=== PATIENT | male | born 1960 | race African-American/Black ===

== ENCOUNTER 2020-10-25 09:59 | Emergency (ER) | payer OTHER ==
[~2020-10-25] VITALS: Ht 175.3 cm; Wt 90.7 kg
[2020-10-25] MEDS ORDERED: Omnipaque-300 100ml vial INJ PRN (10:15)
--- NOTE | 2020-10-25 10:16 | Emergency Room Report ---
History of Present Illness General Chief Complaint: Abdominal Pain Source: Patient Present Illness HPI Patient is a 60-year-old male presents for increased left-sided abdominal pain. Onset of symptoms last night. Reports having had decreased bowel movements. Previous history of diverticulitis in the past. Had not been having any fever. Denies recent vomiting. No recent problem with urination. Pain is severe in nature. Patient had taken Pepto-Bismol without any improvement. No diarrhea or bloody stools. Allergies: Coded Allergies: No Known Allergies (Unverified , 10/25/20) COVID-19 Screening Contact w/high risk pt: No Experienced COVID-19 symptoms?: No COVID-19 Testing performed BRICK PAVER: No Patient History Past Medical History: see triage record Reviewed Nursing Documentation: PMH: Agreed; PSxH: Agreed Nursing Documentation-PMH Past Medical History: No History, Except For Hx Hypertension: Yes Review of Systems All Other Systems: limited Physical Exam Vital Signs Date Time Temp Pulse Resp B/P (MAP) Pulse Ox O2 Delivery O2 Flow Rate FiO2 10/25/20 10:00 98.1 111 17 139/77 (97) 98 Room Air Sp02 EP Interpretation: reviewed, normal General Appearance: normal inspection, well appearing, no apparent distress, alert, GCS 15 Head: atraumatic ENT: normal ENT inspection, hearing grossly normal, normal voice Neck: normal inspection, full range of motion, supple, no bony tend Respiratory: normal inspection, lungs clear, normal breath sounds, no respiratory distress, no retraction, no wheezing Cardiovascular #1: regular rate, rhythm, no edema Gastrointestinal: normal inspection, normal bowel sounds, non tender, soft, no guarding, no hernia Genitourinary: no CVA tenderness Musculoskeletal: normal inspection, back normal, normal range of motion Neurologic: alert, motor strength/tone normal, gastroenterology professor III-XII nml as tested, oriented x3, responsive, speech normal, normal inspection Psychiatric: normal inspection, judgement/insight normal, mood/affect normal Medical Decision Making Diagnostic Impression: Primary Impression: Diverticulitis ER Course Patient presents for abdominal pain. Differential diagnosis include was not limited to diverticulitis, kidney stone, peptic ulcer disease, among others. Because of complexity of patient's case laboratory tests and imaging studies were ordered.Patient's laboratory testing showed minimally elevated white blood count. CT imaging showed evidence of acute diverticulitis. Patient has had diverticulitis in the past. Patient was offered admission which he declined. Patient appears stable for outpatient trial of antibiotics. He was given prescription for pain medications. He was given return precautions. He was advised to return if he felt worse or had persistent vomiting increased pain or other concerns. This medical record is generated with [employer] reserves clerk software. There may be some reserves clerk discrepancies related to use of this software Labs Test 10/25/20 10:18 White Blood Count 13.2 K/UL (4.8-10.8) Red Blood Count 4.56 M/UL (4.70-6.10) Hemoglobin 12.3 G/DL (14.2-18.0) Hematocrit 39.0 % (42.0-52.0) Mean Corpuscular Volume 85 FL (80-99) Mean Corpuscular Hemoglobin 27.0 PG (27.0-31.0) Mean Corpuscular Hemoglobin Concent 31.7 G/DL (32.0-36.0) Red Cell Distribution Width 13.7 % (11.6-14.8) Platelet Count 431 K/UL (150-450) Mean Platelet Volume 8.6 FL (6.5-10.1) Neutrophils (%) (Auto) 72.4 % (45.0-75.0) Lymphocytes (%) (Auto) 16.0 % (20.0-45.0) Monocytes (%) (Auto) 9.5 % (1.0-10.0) Eosinophils (%) (Auto) 0.7 % (0.0-3.0) Basophils (%) (Auto) 1.4 % (0.0-2.0) Prothrombin Time 11.3 SEC (9.30-11.50) Prothromb Time International Ratio 1.0 (0.9-1.1) Activated Partial Thromboplast Time 28 SEC (23-33) Sodium Level 139 MMOL/L (136-145) Potassium Level 3.7 MMOL/L (3.5-5.1) Chloride Level 104 MMOL/L (98-107) Carbon Dioxide Level 28 MMOL/L (21-32) Blood Urea Nitrogen 10 mg/dL (7-18) Creatinine 1.4 MG/DL (0.55-1.30) Estimat Glomerular Filtration Rate 52.1 mL/min (>60) Glucose Level 103 MG/DL (74-106) Calcium Level 9.8 MG/DL (8.5-10.1) Total Bilirubin 0.4 MG/DL (0.2-1.0) Aspartate Amino Transf (AST/SGOT) 24 U/L (15-37) Alanine Aminotransferase (ALT/SGPT) 36 U/L (12-78) Alkaline Phosphatase 68 U/L (46-116) Troponin I 0.000 ng/mL (0.000-0.056) Total Protein 8.3 G/DL (6.4-8.2) Albumin 3.2 G/DL (3.4-5.0) Globulin 5.1 g/dL Albumin/Globulin Ratio 0.6 (1.0-2.7) Last Vital Signs Date Time Temp Pulse Resp B/P (MAP) Pulse Ox O2 Delivery O2 Flow Rate FiO2 10/25/20 10:00 98.1 111 17 139/77 (97) 98 Room Air Status: improved Disposition: HOME, SELF-CARE Condition: Stable Scripts Oxycodone/Acetaminophen 5-325* (PERCOCET 5-325 MG TABLET*) 1 Each Tablet 1 TAB ORAL Q6H PRN for For Pain, #20 TAB Prov: Cameron Haro MD 10/25/20 Psyllium Husk (PSYLLIUM FIBER) 0.52 Gm Capsule 0.52 GM PO THREE TIMES A DAY, #60 CAP Prov: Cameron Haro MD 10/25/20 Metronidazole* (FLAGYL*) 500 Mg Tablet 500 MG ORAL BID, #14 TAB Prov: Cameron Haro MD 10/25/20 Docusate Sodium* (COLACE*) 100 Mg Capsule 100 MG ORAL TWICE A DAY, #30 CAP Prov: Cameron Haro MD 10/25/20 Cameron Haro MD Oct 25, 2020 10:16
[2020-10-25] MEDS ORDERED: Ketorolac 30mg Inj IV ONE (10:30)
[2020-10-25 10:36] LABS: BASOPHILS % (AUTO) 1.4 % (0.0-2.0); EOSINOPHILS % (AUTO) 0.7 % (0.0-3.0); HEMOGLOBIN 12.3 G/DL (14.2-18.0); MEAN CORPUSCULAR VOLUME 85 FL (80-99); MONOCYTES % (AUTO) 9.5 % (1.0-10.0); NEUTROPHILS % (AUTO) 72.4 % (45.0-75.0); PLATELET COUNT 431 K/UL (150-450); RED BLOOD COUNT 4.56 M/UL (4.70-6.10); RED CELL DISTRIBUTION WIDTH 13.7 % (11.6-14.8); WHITE BLOOD COUNT 13.2 K/UL (4.8-10.8)
[2020-10-25 10:45] LABS: ALANINE AMINOTRANSFERASE 36 U/L (12-78); ALBUMIN 3.2 G/DL (3.4-5.0); ALBUMIN/GLOBULIN RATIO 0.6 (1.0-2.7); ALKALINE PHOSPHATASE 68 U/L (46-116); ASPARTATE AMINO TRANSFERASE 24 U/L (15-37); BILIRUBIN,TOTAL 0.4 MG/DL (0.2-1.0); BLOOD UREA NITROGEN 10 mg/dL (7-18); CALCIUM 9.8 MG/DL (8.5-10.1); CARBON DIOXIDE 28 MMOL/L (21-32); CREATININE 1.4 MG/DL (0.55-1.30)
[2020-10-25 10:50] LABS: CHLORIDE 104 MMOL/L (98-107); POTASSIUM 3.7 MMOL/L (3.5-5.1); SODIUM 139 MMOL/L (136-145)
[2020-10-25] MEDS ORDERED: Ampicillin/Sulbactam Sod 3 GM in NS 110 ML IVPB ONE (11:45)
[2020-10-25] MEDS ORDERED: Morphine Sulfate 4mg/ml Inj (IV USE ONLY) IVP ONE (11:45)
--- NOTE | 2020-10-25 12:31 | Diagnostic Imaging Report ---
Clinical Indication: Increased left-sided abdominal pain Technique: No oral contrast utilized, per emergency room physician request IV administration nonionic contrast. Venous phase spiral acquisition obtained through the abdomen and pelvis. Multiplanar reconstructions were generated. Total dose length product 417 mGycm. CTDIvol(s) 8 mGy. Dose reduction achieved using automated exposure control Comparison: none Findings: Lack of enteric contrast limits assessment of the GI tract. There are colonic diverticula. There is infiltration of the fat surrounding the distal descending colon, and a small amount of fluid tracking along Gerota's fascia. No extraluminal gas. No loculated fluid collection demonstrated. The appendix is normal. No small bowel distention. No free intraperitoneal gas. The distal esophagus, stomach, duodenum are unremarkable. The liver, gallbladder, bile ducts, pancreas, spleen are unremarkable. There is an accessory splenule. The adrenals are unremarkable. The right kidney is unremarkable. Left kidney demonstrates subcentimeter low attenuation lesions which are too small to characterize no pelvic mass or adenopathy. No retroperitoneal or mesenteric mass or adenopathy. The included lung bases are clear. The bones are unremarkable. Impression: Evidence of descending colon diverticulitis. Incidental finding of subcentimeter low-attenuation renal lesions on the left, too small to characterize, most likely benign simple cysts The CT scanner at [facility] is accredited by the [employer] and the scans are performed using protocols designed to limit radiation exposure to as low as reasonably achievable to attain images of sufficient resolution adequate for diagnostic evaluation.
[2020-10-25] MEDS ORDERED: PERCOCET 5-3251 EACH ORAL ×2 (12:54→12:55)
[2020-10-25] MEDS ORDERED: COLACE100 MG ORAL (12:54)
[2020-10-25] MEDS ORDERED: PSYLLIUM FIBE0.52 G1 PO (12:54)
[2020-10-25] MEDS ORDERED: METRONIDAZOLE500 MG ORAL (12:54)
[2020-10-25 13:00] VITALS: BP 139/77
[2020-10-25 13:18] VITALS: BP 127/74
--- NOTE | 2020-10-25 13:18 | NUR ---
ER DISCHARGE NOTE: Patient is cleared to be discharged per ERMD, pt is aox4, on room air, with stable vital signs. pt was given dc and prescription instructions, pt was able to verbalize understanding, pt id band and iv site removed without complications. pt is able to ambulate with steady gait. pt took all belongings.
== END 2020-10-25 13:31 | disposition home or self-care (01) ==
LOC: EMR 12:34
DX: K57.92 Diverticulitis of intestine, part unspecified, without perforation or abscess without bleeding (principal); I10 Essential (primary) hypertension
CPT/HCPCS: 36415; 74177; 80053; 84484; 85025; 85610; 85730; 96365; 96375; J0295; J1885; J2270; Q9965; Z7502; 99284

== ENCOUNTER 2020-10-27 13:15 | Inpatient (IN) | payer OTHER ==
[~2020-10-27] VITALS: Ht 175.3 cm; Wt 87.5 kg
[~2020-10-27 13:15] MED LIST: COLACE100 MG ORAL; METRONIDAZOLE500 MG ORAL; PERCOCET 5-3251 EACH ORAL; PSYLLIUM FIBE0.52 G1 PO
--- NOTE | 2020-10-27 13:42 | NUR ---
ED Nurse Note:pt. c/o abdominal pain, was here on 10/25 with diverticulitis, pain got worst
[2020-10-27] MEDS ORDERED: Metoclopramide 10mg/2ml Inj IVP ONE (14:15)
[2020-10-27] MEDS ORDERED: cefTRIAXone 1 GM in NS 55 ML IVPB ONE (14:15)
[2020-10-27] MEDS ORDERED: HYDROmorphone 1mg/ml Carpuject IVP ONE (14:15)
[2020-10-27] MEDS ORDERED: DiphenhydrAMINE 50mg/ml Inj IVP ONE (14:15)
--- NOTE | 2020-10-27 14:36 | Emergency Room Report ---
History of Present Illness General Chief Complaint: Abdominal Pain Source: Patient Present Illness HPI The patient was seen here 2 days ago. He was diagnosed with diverticulitis. He was given a dose of Unasyn in the emergency department and discharged on Flagyl and Percocet. He says usually this controls the pain however he returns today stating that the pain is still severe. This morning it was 9/10 before he took a Percocet. Now it is 8/10. It is left lower quadrant nonradiating. He did move his bowels earlier today. He denies any nausea vomiting. He does not have any dysuria or hematuria. The patient has had a history of diverticulitis in the past. He has never required surgery. Patient denies exposure to Covid positive contacts. He was positive September 22. He did not need to be hospitalized. Patient has history of hypertension and has been able to take his medications. No fevers, chills, sore throat, chest pain, palpitations, shortness of breath, joint pain, rashes, depression, anxiety, visual changes, dizziness, headache. 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 Brought here by his girlfriend Reviewed Nursing Documentation: PMH: Agreed; PSxH: Agreed Nursing Documentation-PMH Past Medical History: No History, Except For Hx Hypertension: Yes Review of Systems All Other Systems: negative except mentioned in HPI Physical Exam Vital Signs Date Time Temp Pulse Resp B/P (MAP) Pulse Ox O2 Delivery O2 Flow Rate FiO2 10/27/20 13:25 98.1 115 20 103/71 (82) 96 Room Air Sp02 EP Interpretation: reviewed, normal General Appearance: well appearing, no apparent distress, GCS 15 Head: normocephalic Eyes: bilateral eye normal inspection, bilateral eye PERRL, bilateral eye EOMI, bilateral eye other - Heliotrope rash around eyes ENT: other - Wearing a mask Neck: supple Respiratory: lungs clear, normal breath sounds - Anteriorly Cardiovascular #1: regular rate, rhythm Cardiovascular #2: 2+ radial (R) Gastrointestinal: normal inspection, normal bowel sounds, no mass, non-disten ded, no guarding, no rebound, tenderness - Left lower quadrant Musculoskeletal: back normal, normal range of motion, gait/station normal Neurologic: alert, oriented x3, grossly normal Psychiatric: mood/affect normal Skin: no rash, warm/dry Medical Decision Making Diagnostic Impression: Primary Impression: Diverticulitis Additional Impression: Renal failure Qualified Codes: N17.9 - Acute kidney failure, unspecified ER Course Patient was seen October 25 with a diagnosis of diverticulitis and returns for increased pain at this time. He has been taking the antibiotics and also the Percocet. Differential includes persistent pain from diverticulitis, worsening of diverticulitis although the exam is against perforation at this time amongst other causes. At this time CT is not indicated to be repeated based on exam. In addition to that labs are indicated. Patient will receive IV hydration and also a dose of Rocephin IV. We will see if we can control his pain here. If we are unable to control the pain with repeated abdominal exams he may need to be admitted to the hospital. Labs significant for normal white count. Dramatic increase in serum creatinine over the last 2 days. Patient's pain is improved. However due to rising creatinine patient is admitted to the hospital for acute renal failure and following of renal function. Based on fractional excretion of sodium, renal failure is pre-renal. Hydration indicated. Laboratory Tests Test 10/27/20 14:37 10/27/20 15:32 White Blood Count 9.0 K/UL (4.8-10.8) Red Blood Count 4.27 M/UL (4.70-6.10) L Hemoglobin 12.0 G/DL (14.2-18.0) L Hematocrit 36.5 % (42.0-52.0) L Mean Corpuscular Volume 85 FL (80-99) Mean Corpuscular Hemoglobin 28.0 PG (27.0-31.0) Mean Corpuscular Hemoglobin Concent 32.8 G/DL (32.0-36.0) Red Cell Distribution Width 13.4 % (11.6-14.8) Platelet Count 446 K/UL (150-450) Mean Platelet Volume 8.4 FL (6.5-10.1) Neutrophils (%) (Auto) 60.2 % (45.0-75.0) Lymphocytes (%) (Auto) 24.1 % (20.0-45.0) Monocytes (%) (Auto) 10.7 % (1.0-10.0) H Eosinophils (%) (Auto) 3.2 % (0.0-3.0) H Basophils (%) (Auto) 1.7 % (0.0-2.0) Prothrombin Time 11.0 SEC (9.30-11.50) Prothrombin Time INR 1.0 (0.9-1.1) Activated Partial Thromboplast Time 29 SEC (23-33) Sodium Level 140 MMOL/L (136-145) Potassium Level 3.6 MMOL/L (3.5-5.1) Chloride Level 103 MMOL/L (98-107) Carbon Dioxide Level 30 MMOL/L (21-32) Anion Gap 7 mmol/L (5-15) Blood Urea Nitrogen 17 mg/dL (7-18) Creatinine 1.7 MG/DL (0.55-1.30) H Estimated Glomerular Filtration Rate 50.4 mL/min (>60) Glucose Level 103 MG/DL (74-106) Calcium Level 9.5 MG/DL (8.5-10.1) Total Bilirubin 0.3 MG/DL (0.2-1.0) Aspartate Amino Transferase (AST) 21 U/L (15-37) Alanine Aminotransferase (ALT) 34 U/L (12-78) Alkaline Phosphatase 76 U/L (46-116) Total Protein 8.4 G/DL (6.4-8.2) H Albumin 2.9 G/DL (3.4-5.0) L Globulin 5.5 g/dL Albumin/Globulin Ratio 0.5 (1.0-2.7) L Lipase 355 U/L (73-393) Urine Color Yellow Urine Appearance Clear Urine pH 6 (4.5-8.0) Urine Specific [place] 1.010 (1.005-1.035) Urine Protein 1+ (NEGATIVE) H Urine Glucose (UA) Negative (NEGATIVE) Urine Ketones Negative (NEGATIVE) Urine Blood 1+ (NEGATIVE) H Urine Nitrite Negative (NEGATIVE) Urine Bilirubin Negative (NEGATIVE) Urine Urobilinogen Normal MG/DL (0.0-1.0) Urine Leukocyte Esterase 1+ (NEGATIVE) H Urine RBC 0-2 /HPF (0 - 0) H Urine WBC 2-4 /HPF (0 - 0) Urine Squamous Epithelial Cells None /LPF (NONE/OCC) Urine Bacteria Few /HPF (NONE) Last Vital Signs Date Time Temp Pulse Resp B/P (MAP) Pulse Ox O2 Delivery O2 Flow Rate FiO2 10/28/20 00:00 97.7 79 19 126/72 (90) 100 10/27/20 20:34 Room Air Status: improved Disposition: ADMITTED INPATIENT Condition: Serious Referrals: [facility],REFERRING (PCP) Hudson Fine MD Oct 27, 2020 14:36
[2020-10-27 15:30] LABS: CALCIUM 9.5 MG/DL (8.5-10.1); CREATININE 1.7 MG/DL (0.55-1.30); POTASSIUM 3.6 MMOL/L (3.5-5.1)
[2020-10-27 15:34] LABS: ALBUMIN 2.9 G/DL (3.4-5.0); ALBUMIN/GLOBULIN RATIO 0.5 (1.0-2.7); BILIRUBIN,TOTAL 0.3 MG/DL (0.2-1.0)
[2020-10-27 15:49] LABS: BASOPHILS % (AUTO) 1.7 % (0.0-2.0); EOSINOPHILS % (AUTO) 3.2 % (0.0-3.0); HEMATOCRIT 36.5 % (42.0-52.0); LYMPHOCYTES % (AUTO) 24.1 % (20.0-45.0); MEAN CORPUSCULAR VOLUME 85 FL (80-99); MONOCYTES % (AUTO) 10.7 % (1.0-10.0); NEUTROPHILS % (AUTO) 60.2 % (45.0-75.0); PLATELET COUNT 446 K/UL (150-450); RED BLOOD COUNT 4.27 M/UL (4.70-6.10); RED CELL DISTRIBUTION WIDTH 13.4 % (11.6-14.8)
--- NOTE | 2020-10-27 15:54 | NUR ---
ED Nurse Note: pt given food, fluids. pt urinated, sent to lab. pt verbalizes understanding of plan to admit for renal observation. pt A&Ox4, ambulatory, stable. will continue to monitor.
[2020-10-27 16:05] LABS: APPEARANCE,URINE CLEAR; BILIRUBIN, URINE NEGATIVE (NEGATIVE); GLUCOSE, URINE (UA) NEGATIVE (NEGATIVE); KETONES,URINE NEGATIVE (NEGATIVE); NITRITE,URINE NEGATIVE (NEGATIVE); PH,URINE 6 (4.5-8.0); PROTEIN,URINE 1+ (NEGATIVE); UROBILINOGEN,URINE NORMAL MG/DL (0.0-1.0)
[2020-10-27 16:31] LABS: COLOR,URINE YELLOW; LEUKOCYTE ESTERASE ,URINE 1+ (NEGATIVE)
[2020-10-27 18:24] VITALS: BP 122/78
--- NOTE | 2020-10-27 18:25 | NUR ---
ED Nurse Note: pt given food fluids. pt updated regarding plan for admission. pt belonging list documented.
--- NOTE | 2020-10-27 18:40 | NUR ---
NURSE NOTES: Telephone report received from John MOSHER, awaiting for patient to be transferred to 4E unit.
--- NOTE | 2020-10-27 18:42 | NUR ---
ED Nurse Note: called report to Faviola MOSHER.
--- NOTE | 2020-10-27 19:07 | NUR ---
NURSE HAND-OFF: Important Events on Shift:ER admission, has not been transferred to yet Patient Status: [] Diet: [] Pending Orders: [] Pending Results/Labs:[] Pending MD notification:[] Latest Vital Signs: Temperature 98.1 , Pulse 72 , B/P 122 /78 , Respiratory Rate 18 , O2 SAT 95 , Room Air, O2 Flow Rate . Vital Sign Comment: [] Latest Sánchez Fall Score: Fall Risk: Safety Measures: Call light , Bed Alarm , Side Rails , Bed position . Fall Precautions: Report given to Yoseph MOSHER.
--- NOTE | 2020-10-27 19:18 | NUR ---
ED Nurse Note: Pt laying in bed with eyes open, AAOx4, breathing even and unlabored. No complaints from pt at the moment, denies pain.
--- NOTE | 2020-10-27 19:40 | NUR ---
TRANSFER TO FLOOR: Patient transferred to [facility] as ordered, per EDMD. Report given to by dayshift nurse to NOMI Merchant. Belongings and admission packet given to NOMI Zaldivar in [facility].
[2020-10-27 20:00] VITALS: BP 123/80
--- NOTE | 2020-10-27 20:15 | NUR ---
NURSE NOTES: Pt admitted from ER with DX of Abdominal pain under Dr. Robert, Hx of diverticulitis. Vitals stable on room air. No acute distress noted. Pt is afebrile, no coughing. Pt is awake ,alert and ambulatory. No pain now as pain medication was given in ER. No nausea or vomiting now. Dr. Robert will be called for admission orders. Pt oriented to the room. Pt's belongings verified; pt refused to send valuables for safe keeping, signed the belonging sheet. Fall precautions in place. Bed locked low in position,side rails up and call light within reach. Pt will be monitored.
[2020-10-27] MEDS ORDERED: AMLODIPINE BESY10 MG ORAL (20:33)
--- NOTE | 2020-10-27 21:01 | History & Physical ---
History and Physical History & Physicial Eiljah Robert MD Oct 27, 2020 21:01
[2020-10-27] MEDS ORDERED: Morphine Sulfate 2mg/ml Inj(IV/IM USE ONLY) IVP PRN (21:15)
[2020-10-27] MEDS ORDERED: Omnipaque-300 100ml vial INJ PRN (21:15)
[2020-10-27] MEDS ORDERED: HYDROcodone/Acetamin 5/325 tab ORAL PRN (21:15)
--- NOTE | 2020-10-27 21:15 | NUR ---
NURSE NOTES: Admission orders received from dr. Robert and acknowledged.
[2020-10-27] MEDS: Piperacillin/Tazobactam 3.375 GM in NS 110 ML IVPB SCH (22:47)
[2020-10-27] MEDS: D5 1/2NS w/KCl 20mEq 1,000 ML IV SCH (22:48)
[2020-10-28] VITALS: BP 126/72
--- NOTE | 2020-10-28 03:08 | NUR ---
NURSE NOTES: Pt is in bed, asleep. No acute distress noted. D5 1/2NS with 20mEq KCL running at 75ml/hr. Pt reports no pain now.
[2020-10-28 04:00] VITALS: BP 138/72
--- NOTE | 2020-10-28 06:00 | NUR ---
NURSE NOTES: Pt has been NPO since midnight.
[2020-10-28] MEDS: Piperacillin/Tazobactam 3.375 GM in NS 110 ML IVPB SCH ×3 (06:20→21:46)
--- NOTE | 2020-10-28 07:30 | NUR ---
NURSE HAND-OFF: Important Events on Shift:[Admission] Patient Status: [Stable] Diet: [Clear Liq- NPO now] Pending Orders: [] Pending Results/Labs:[ABD CT Scan] Pending MD notification:[] Latest Vital Signs: Temperature 97.9 , Pulse 60 , B/P 138 /72 , Respiratory Rate 18 , O2 SAT 98 , Room Air, O2 Flow Rate . Vital Sign Comment: [] Latest Sánchez Fall Score: 35 Fall Risk: Medium Risk Safety Measures: Call light Within Reach, Bed Alarm Zone 2, Side Rails Side Rails x2, Bed position Low and Locked. Fall Precautions: Yellow Socks Yellow Gown Door Sign Patient Fall Education Report given to [NOMI Ayala. Informed to keep Pt NPO for ABD CT Scan].
--- NOTE | 2020-10-28 07:42 | NUR ---
NURSE NOTES: Handoff received from Yoseph RN. Patient is awake and alert, no signs of acute distress noted, no reports of pain or discomfort at this time. Left Ac is intact and running IVf as ordered. Updated patient on plan of care, patient is currently NPO for ABD CT this AM. Bed is low and locked, side rails up x2, call light is within reach.
[2020-10-28 07:57] LABS: BASOPHILS % (AUTO) 1.6 % (0.0-2.0); HEMATOCRIT 33.1 % (42.0-52.0); HEMOGLOBIN 10.8 G/DL (14.2-18.0); LYMPHOCYTES % (AUTO) 36.2 % (20.0-45.0); MEAN CORPUSCULAR VOLUME 85 FL (80-99); MONOCYTES % (AUTO) 15.2 % (1.0-10.0); PLATELET COUNT 429 K/UL (150-450); RED BLOOD COUNT 3.88 M/UL (4.70-6.10); RED CELL DISTRIBUTION WIDTH 13.3 % (11.6-14.8); WHITE BLOOD COUNT 5.8 K/UL (4.8-10.8)
[2020-10-28 08:00] VITALS: BP 130/79
[2020-10-28 08:19] LABS: ALBUMIN 2.6 G/DL (3.4-5.0); ALBUMIN/GLOBULIN RATIO 0.5 (1.0-2.7); BILIRUBIN,TOTAL 0.3 MG/DL (0.2-1.0); CALCIUM 8.9 MG/DL (8.5-10.1); CREATININE 1.5 MG/DL (0.55-1.30); PHOSPHORUS 2.8 MG/DL (2.5-4.9); POTASSIUM 3.8 MMOL/L (3.5-5.1)
--- NOTE | 2020-10-28 10:14 | History and Physical Report ---
DATE OF ADMISSION: 10/27/2020 CHIEF COMPLAINT: Left lower quadrant abdominal pain. HISTORY OF PRESENT ILLNESS: This is a 60-year-old very delightful gentleman with past medical history significant for hypertension and chronic kidney disease, who presented to the hospital complaining about the left lower quadrant abdominal pain. The patient had recently presented to the emergency department complaining of abdominal pain and was diagnosed with diverticulitis and subsequently the patient received Unasyn and discharged with Flagyl and Percocet. The patient stated that usually this controlled the pain, however, he returned back to the hospital due to the severe worsening of the pain starting today in the morning, 9/10 in intensity, not responding to the Percocet pain medication. Pain is in the left lower , nonradiating, did improve when the patient had a bowel movement today. No nausea or vomiting. No dysuria, frequency, or hematuria. Shortly after initial evaluation in the emergency department, the patient was admitted to the hospital with left lower quadrant pain possible due to the acute diverticulitis. PAST MEDICAL HISTORY AND PAST SURGICAL HISTORY: As above, history of hypertension and chronic kidney disease. 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 MEDICATIONS: At home, please refer to medication reconciliation. ALLERGIES: No known drug allergies. SOCIAL HISTORY: Denies any smoking, alcohol, or drugs, but he is socially drinking otherwise. FAMILY HISTORY: Noncontributory. REVIEW OF SYSTEMS: Mostly as above. Denies any dysuria, frequency, or hematuria. Denies any hemoptysis or hematochezia. Denies any bright red blood per rectum. Denies any loss of consciousness. Denies any fall or head trauma. PHYSICAL EXAMINATION: VITAL SIGNS: On admission, temperature 98.1, pulse of 115, respirations 20, and blood pressure 103/71. GENERAL: The patient is awake and responsive, not in acute distress. HEAD AND NECK: Pupils are equal and reactive to light. Extraocular movements are intact. Neck was supple. No JVD. LUNGS: Good air entry with no wheezing or rales. HEART: S1, S2. Regular rhythm. No gallop. ABDOMEN: Soft, nondistended. Mildly obese. No rebound tenderness. The patient has left lower quadrant tenderness on deep palpation. RECTAL/GENITOURINARY: Refused and deferred. EXTREMITIES: No cyanosis, clubbing, or edema. NEUROLOGIC: Cranial nerves II through XII grossly normal. Motor strength is 5/5 in all extremities. Gait is intact. LABORATORY DATA: On admission from the emergency department, sodium 140, potassium 3.6, chloride 103, bicarb 30, BUN , creatinine 1.7. Glucose is 103. AST of 21, ALT of 34, alkaline phosphatase 76. Albumin is 2.9. Lipase is 355. WBC of 9.0, hemoglobin 12, hematocrit 36, platelets 446,000. UA is +1 protein, +1 blood, +1 leukocytes. PT of 11, INR of 1.0, PTT of 29. ASSESSMENT: 1. Left lower quadrant pain, most likely due to diverticulitis, however, cannot rule out any other etiology, possible intra-abdominal infection such as abscess. 2. Hypertension. 3. Acute kidney injury and chronic renal insufficiency. 4. Obesity. PLAN: Admit the patient to medical floor. We will start the patient on broad spectrum antibiotic with Zosyn. Clear liquid diet. Consider repeat CT scan of the abdomen and pelvis in order to rule out abscess. Code status is Full Code. DVT prophylaxis, heparin subcutaneous. We will follow up with Dr. Sewell from Gastroenterology and Dr. Wylie from General Surgery consultation. Elijah Robert M.D. DR: STEVE JOB#: [id number] CC:
--- NOTE | 2020-10-28 10:27 | NUR ---
CASE MANAGEMENT:REVIEW 60 YR OLD MALE PRESENTED TO ER CC; ABDOMINAL PAIN SI: ACUTE RENAL FAILURE. DIVERTICULITIS 98.1 115 20 103/71 96% ON RA CR+1.7 URINE CR+226.5 IS: IV REGLAN IV DILAUDID 1L NS BOLUS IV BENADRYL X1 IV ROCEPHIN X1 : TO MED/SURG 4 EAST DCP: RETURN TO PRIOR LIVING ARRANGEMENTS
--- NOTE | 2020-10-28 10:30 | Diagnostic Imaging Report ---
Indication: Abdominal pain Technique: Spiral acquisitions obtained through the abdomen and pelvis. Patient ingested oral contrast. No IV contrast, reason not stated. Multiplanar reconstructions were generated. Total dose length product 398 mGycm. CTDIvol(s) 7 mGy. Dose reduction achieved using automated exposure control Comparison: 10/25/2020 Findings: There is colonic diverticulosis. Again demonstrated is inflammatory stranding of the pericolonic fat surrounding the distal descending colon. This appears slightly decreased from the prior exam, and the amount of fluid tracking in the adjacent fascial planes is also decreased. No organized fluid collection or extraluminal gas is demonstrated. The appendix is normal. No small bowel distention. Ingested contrast has traversed the entirety of the GI tract, is seen as far distally as the splenic flexure the colon. No small bowel wall thickening. No free or loculated intraperitoneal gas. The distal esophagus, stomach, duodenum are unremarkable. Lack of IV contrast limits assessment of the solid organs. The liver, gallbladder, bile ducts, pancreas, spleen, adrenals, kidneys are unremarkable. No retroperitoneal or mesenteric mass or adenopathy. No pelvic mass or adenopathy. The included lung bases demonstrate posterior dependent atelectatic changes. The bones are unremarkable for age. Impression: Evidence of uncomplicated acute diverticulitis of the distal descending colon is again demonstrated. Overall inflammatory changes and fluid have improved slightly since the previous exam of 3 days earlier. No evidence of microperforation or abscess formation Incidental finding basilar dependent atelectatic changes at the lung bases The CT scanner at [facility] is accredited by the [employer] and the scans are performed using protocols designed to limit radiation exposure to as low as reasonably achievable to attain images of sufficient resolution adequate for diagnostic evaluation.
[2020-10-28 12:00] VITALS: BP 142/88
[2020-10-28] MEDS: D5 1/2NS w/KCl 20mEq 1,000 ML IV SCH (13:33)
--- NOTE | 2020-10-28 13:46 | General Progress Note ---
Subjective ROS Limited/Unobtainable: Yes Allergies: Coded Allergies: No Known Allergies (Unverified , 10/25/20) Objective Last 24 Hour Vital Signs Date Time Temp Pulse Resp B/P (MAP) Pulse Ox O2 Delivery O2 Flow Rate FiO2 10/28/20 09:20 59 130/79 10/28/20 09:00 Room Air 10/28/20 08:00 96.8 20 130/79 (96) 99 10/28/20 04:00 97.9 60 18 138/72 (94) 98 10/28/20 00:00 97.7 79 19 126/72 (90) 100 10/27/20 20:34 Room Air 10/27/20 20:00 97.3 65 18 123/80 (94) 96 10/27/20 19:40 98.0 70 18 120/74 100 Room Air 10/27/20 18:24 72 18 122/78 95 Room Air 10/27/20 16:02 98.1 Intake and Output 10/27/20 10/28/20 19:00 07:00 Intake Total 485.0 ml Balance 485.0 ml Intake IV Total 485.0 ml # Voids 1 2 Laboratory Tests 10/27/20 14:37: White Blood Count 9.0, Red Blood Count 4.27L, Hemoglobin 12.0L, Hematocrit 36.5L , Mean Corpuscular Volume 85, Mean Corpuscular Hemoglobin 28.0, Mean Corpuscular Hemoglobin Concent 32.8, Red Cell Distribution Width 13.4, Platelet Count 446, Mean Platelet Volume 8.4, Neutrophils (%) (Auto) 60.2, Lymphocytes (%) (Auto) 24.1, Monocytes (%) (Auto) 10.7H, Eosinophils (%) (Auto) 3.2H, Basophils (%) (Auto) 1.7, Prothrombin Time 11.0, Prothromb Time International Ratio 1.0, Activated Partial Thromboplast Time 29, Sodium Level 140, Potassium Level 3.6, Chloride Level 103, Carbon Dioxide Level 30, Anion Gap 7, Blood Urea Nitrogen 17, Creatinine 1.7H, Estimat Glomerular Filtration Rate 50.4, Glucose Level 103, Calcium Level 9.5, Total Bilirubin 0.3, Aspartate Amino Transf (AST/SGOT) 21, Alanine Aminotransferase (ALT/SGPT) 34, Alkaline Phosphatase 76, Total Protein 8.4H, Albumin 2.9L, Globulin 5.5, Albumin/Globulin Ratio 0.5L, Lipase 355 10/27/20 15:32: Urine Color Yellow, Urine Appearance Clear, Urine pH 6, Urine Specific Crawford 1.010, Urine Protein 1+H, Urine Glucose (UA) Negative, Urine Ketones Negative, Urine Blood 1+H, Urine Nitrite Negative, Urine Bilirubin Negative, Urine Urobilinogen Normal, Urine Leukocyte Esterase 1+H, Urine RBC 0-2H, Urine WBC 2- 4, Urine Squamous Epithelial Cells None, Urine Bacteria Few, Urine Random Sodium 58, Urine Creatinine 226.5H 10/28/20 07:40: White Blood Count 5.8, Red Blood Count 3.88L, Hemoglobin 10.8L, Hematocrit 33.1L , Mean Corpuscular Volume 85, Mean Corpuscular Hemoglobin 27.8, Mean Corpuscular Hemoglobin Concent 32.6, Red Cell Distribution Width 13.3, Platelet Count 429, Mean Platelet Volume 7.6, Neutrophils (%) (Auto) 43.0L, Lymphocytes (%) (Auto) 36.2, Monocytes (%) (Auto) 15.2H, Eosinophils (%) (Auto) 4.0H, Basophils (%) (Auto) 1.6, Sodium Level 141, Potassium Level 3.8, Chloride Level 106, Carbon Dioxide Level 28, Anion Gap 7, Blood Urea Nitrogen 13, Creatinine 1.5H, Estimat Glomerular Filtration Rate 58.3, Glucose Level 98, Calcium Level 8.9, Total Bilirubin 0.3, Aspartate Amino Transf (AST/SGOT) 20, Alanine Aminotransferase (ALT/SGPT) 31, Alkaline Phosphatase 66, Total Protein 7.8, Albumin 2.6L, Globulin 5.2, Albumin/Globulin Ratio 0.5L, Phosphorus Level 2.8, Magnesium Level 2.0 Height (Feet): 5 Height (Inches): 9.00 Weight (Pounds): 193 General Appearance: no apparent distress EENT: normal ENT inspection Neck: supple Cardiovascular: normal rate Respiratory/Chest: decreased breath sounds Abdomen: normal bowel sounds, non tender, soft Extremities: non-tender Assessment/Plan Problem List: (1) Diverticulitis ICD Codes: K57.92 - Diverticulitis of intestine, part unspecified, without perforation or abscess without bleeding SNOMED: 992810352 Assessment/Plan: ivf iv abx daily exam needs out patient colonoscopy in 8 weeks Nam Sewell MD Oct 28, 2020 13:46
--- NOTE | 2020-10-28 14:09 | NUR ---
INSURANCE CLINICALS/REVIEW FAXED TO [facility] [employer] [phone] & [phone]
[2020-10-28 16:00] VITALS: BP 156/74
--- NOTE | 2020-10-28 19:09 | NUR ---
NURSE HAND-OFF: Important Events on Shift:[CT abdomen] Patient Status: stable Diet: cardiac soft Pending Orders: Pending Results/Labs: Pending MD notification: Latest Vital Signs: Temperature 98.0 , Pulse 62 , B/P 156 /74 , Respiratory Rate 20 , O2 SAT 100 , Room Air, O2 Flow Rate . Vital Sign Comment: stable Latest Sánchez Fall Score: 35 Fall Risk: Medium Risk Safety Measures: Call light Within Reach, Bed Alarm Zone 1, Side Rails Side Rails x2, Bed position Low and Locked. Fall Precautions: Patient Fall Education Report given to Yoseph MOSHER.
--- NOTE | 2020-10-28 19:49 | Internal Med Progress Note ---
Subjective Physician Name Elijah Robert Attending Physician Elijah Robert MD Current Medications Medications (Trade) Dose Ordered Sig/Delon Route PRN Reason Start Time Stop Time Status Last Admin Dose Admin Acetaminophen (Tylenol) 650 mg Q6H PRN ORAL Mild Pain (Pain Scale 1-3) 10/27/20 21:15 11/26/20 21:14 Acetaminophen (Tylenol) 650 mg Q6H PRN ORAL Temp >100.5 10/27/20 21:15 11/26/20 21:14 Acetaminophen/ Hydrocodone Bitart ([place] 5/325) 1 tab Q6H PRN ORAL Moderate Pain (Pain Scale 4-6) 10/27/20 21:15 11/03/20 21:14 Amlodipine Besylate (Norvasc) 10 mg DAILY ORAL 10/28/20 09:00 11/27/20 08:59 10/28/20 09:20 Barium Sulfate (Readi-Cat 2) 450 ml NOW PRN ORAL Radiology Procedure 10/27/20 21:15 10/29/20 21:14 Dextrose/ Electrolytes 1,000 ml @ 75 mls/hr [id number] IV 10/27/20 23:00 11/26/20 22:59 10/28/20 13:33 Iohexol (OMNIPAQUE-300 100ml) 100 ml NOW PRN INJ Radiology Procedure 10/27/20 21:15 10/29/20 21:14 Morphine Sulfate (Morphine Sulfate) 2 mg Q6H PRN IVP Severe Pain (Pain Scale 7-10) 10/27/20 21:15 11/03/20 21:14 Ondansetron HCl (Zofran) 4 mg Q4H PRN IVP Nausea & Vomiting 10/27/20 21:15 11/26/20 21:14 Piperacillin Sod/ Tazobactam Sod 3.375 gm/Sodium Chloride 110 ml @ 27.5 mls/hr EVERY 8 HOURS IVPB 10/27/20 23:00 11/01/20 22:59 10/28/20 13:33 Allergies: Coded Allergies: No Known Allergies (Unverified , 10/25/20) Subjective awake, alert, responsive, no acute distress, decreased abdominal pain, asking for advanced diet. Objective Last Vital Signs Date Time Temp Pulse Resp B/P (MAP) Pulse Ox O2 Delivery O2 Flow Rate FiO2 10/28/20 16:00 98.0 62 20 156/74 (101) 100 10/28/20 09:00 Room Air Laboratory Tests Test 10/28/20 07:40 White Blood Count 5.8 K/UL (4.8-10.8) Red Blood Count 3.88 M/UL (4.70-6.10) L Hemoglobin 10.8 G/DL (14.2-18.0) L Hematocrit 33.1 % (42.0-52.0) L Mean Corpuscular Volume 85 FL (80-99) Mean Corpuscular Hemoglobin 27.8 PG (27.0-31.0) Mean Corpuscular Hemoglobin Concent 32.6 G/DL (32.0-36.0) Red Cell Distribution Width 13.3 % (11.6-14.8) Platelet Count 429 K/UL (150-450) Mean Platelet Volume 7.6 FL (6.5-10.1) Neutrophils (%) (Auto) 43.0 % (45.0-75.0) L Lymphocytes (%) (Auto) 36.2 % (20.0-45.0) Monocytes (%) (Auto) 15.2 % (1.0-10.0) H Eosinophils (%) (Auto) 4.0 % (0.0-3.0) H Basophils (%) (Auto) 1.6 % (0.0-2.0) Sodium Level 141 MMOL/L (136-145) Potassium Level 3.8 MMOL/L (3.5-5.1) Chloride Level 106 MMOL/L (98-107) Carbon Dioxide Level 28 MMOL/L (21-32) Anion Gap 7 mmol/L (5-15) Blood Urea Nitrogen 13 mg/dL (7-18) Creatinine 1.5 MG/DL (0.55-1.30) H Estimat Glomerular Filtration Rate 58.3 mL/min (>60) Glucose Level 98 MG/DL (74-106) Calcium Level 8.9 MG/DL (8.5-10.1) Phosphorus Level 2.8 MG/DL (2.5-4.9) Magnesium Level 2.0 MG/DL (1.8-2.4) Total Bilirubin 0.3 MG/DL (0.2-1.0) Aspartate Amino Transf (AST/SGOT) 20 U/L (15-37) Alanine Aminotransferase (ALT/SGPT) 31 U/L (12-78) Alkaline Phosphatase 66 U/L (46-116) Total Protein 7.8 G/DL (6.4-8.2) Albumin 2.6 G/DL (3.4-5.0) L Globulin 5.2 g/dL Albumin/Globulin Ratio 0.5 (1.0-2.7) L Intake and Output 10/27/20 10/28/20 19:00 07:00 Intake Total 485.0 ml Balance 485.0 ml IV Total 485.0 ml # Voids 1 2 Objective GENERAL: The patient is awake and responsive, not in acute distress. HEAD AND NECK: Pupils are equal and reactive to light. Extraocular movements are intact. Neck was supple. No JVD. LUNGS: Good air entry with no wheezing or rales. HEART: S1, S2. Regular rhythm. No Murmur or gallop. ABDOMEN: Soft, nondistended. Mildly obese. No rebound tenderness. Less left lower quadrant tenderness on deep palpation. RECTAL/GENITOURINARY: Refused and deferred. EXTREMITIES: No cyanosis, clubbing, or edema. NEUROLOGIC: Cranial nerves II through XII grossly normal. Motor strength is 5/5 in all extremities. Gait is intact. Assessment/Plan Assessment/Plan ASSESSMENT: 1. Left lower quadrant pain, most likely due to diverticulitis, however, cannot rule out any other etiology, possible intra-abdominal infection such as abscess. 2. Hypertension. 3. Acute kidney injury and chronic renal insufficiency. 4. Obesity. PLAN: In medical floor. Abx: Zosyn. Code status: Full Code. DVT prophylaxis: Heparin subcutaneous. Dr. Sewell from Gastroenterology Dr. Wylie from General Surgery consultation. advance diet Elijah Robert MD Oct 28, 2020 19:49
[2020-10-28 20:00] VITALS: BP 130/88
--- NOTE | 2020-10-28 20:43 | NUR ---
NURSE NOTES: Pt is in bed, awake and alert. Vitals stable. Pt had ABD CT scan done, pt is on soft diet now. Tolerating diet well. PT reports no pain now. Pt is on Zosyn. D5 1/2NS with 20mEq 75ml/hr. Fall precautions in place. Pt will be monitored.
[2020-10-29] VITALS: BP 143/92
[2020-10-29] MEDS: D5 1/2NS w/KCl 20mEq 1,000 ML IV SCH (01:40)
[2020-10-29 04:00] VITALS: BP 123/76
--- NOTE | 2020-10-29 06:00 | NUR ---
NURSE NOTES: Pt had no complaints of pain during this shift.
[2020-10-29] MEDS: Piperacillin/Tazobactam 3.375 GM in NS 110 ML IVPB SCH (06:27)
--- NOTE | 2020-10-29 07:25 | NUR ---
NURSE HAND-OFF: Important Events on Shift:[] Patient Status: [Stable] Diet: [Tolerating diet] Pending Orders: [] Pending Results/Labs:[] Pending MD notification:[] Latest Vital Signs: Temperature 97.1 , Pulse 55 , B/P 123 /76 , Respiratory Rate 18 , O2 SAT 97 , Room Air, O2 Flow Rate . Vital Sign Comment: [] Latest Sánchez Fall Score: 35 Fall Risk: Medium Risk Safety Measures: Call light Within Reach, Bed Alarm Zone 1, Side Rails Side Rails x2, Bed position Low and Locked. Fall Precautions: Patient Fall Education Report given to [Jarrod Garcia RN].
--- NOTE | 2020-10-29 07:30 | NUR ---
NURSE NOTES: Patient lying in bed awake. No complain of pain or distress at this time. Skin intact and dry. IV dressing intact and dry. Bed lowest position and side rails up. Call light within reach. Will continue to monitor.
[2020-10-29 08:00] VITALS: BP 125/86
--- NOTE | 2020-10-29 08:54 | General Progress Note ---
Subjective ROS Limited/Unobtainable: Yes Allergies: Coded Allergies: No Known Allergies (Unverified , 10/25/20) Objective Last 24 Hour Vital Signs Date Time Temp Pulse Resp B/P (MAP) Pulse Ox O2 Delivery O2 Flow Rate FiO2 10/29/20 08:27 60 125/86 10/29/20 08:00 97.9 60 18 125/86 (99) 97 10/29/20 04:00 97.1 55 18 123/76 (92) 97 10/29/20 00:00 97.9 67 18 143/92 (109) 100 10/28/20 21:00 Room Air 10/28/20 20:00 98.0 74 18 130/88 (102) 98 10/28/20 16:00 98.0 62 20 156/74 (101) 100 10/28/20 12:00 97.4 65 18 142/88 (106) 100 10/28/20 09:20 59 130/79 10/28/20 09:00 Room Air Intake and Output 0 10/28/20 10/29/20 19:00 07:00 Intake Total 852.5 ml Balance 852.5 ml Intake Oral 750 ml IV Total 102.5 ml # Voids 3 # Bowel Movements 1 Height (Feet): 5 Height (Inches): 9.00 Weight (Pounds): 193 General Appearance: alert EENT: normal ENT inspection Neck: supple Cardiovascular: normal rate Respiratory/Chest: decreased breath sounds Abdomen: normal bowel sounds, non tender, soft Extremities: non-tender Assessment/Plan Problem List: (1) Diverticulitis ICD Codes: K57.92 - Diverticulitis of intestine, part unspecified, without perforation or abscess without bleeding SNOMED: 149689688 Assessment/Plan: ivf iv abx daily exam needs out patient colonoscopy in 8 weeks Nam Sewell MD Oct 29, 2020 08:54
--- NOTE | 2020-10-29 08:56 | NUR ---
NURSE NOTES: Spoke to regarding patient and Patient cleared to discharge GI standpoint. Order noted and carried out.
[2020-10-29 12:00] VITALS: BP 121/78
--- NOTE | 2020-10-29 13:15 | NUR ---
NURSE NOTES: Spoke to regarding discharge and Discharge home today. Order noted and carried out. Addendum: 10/29/20 at 1317 by RAMILA JONES RN Per : he will call patient's pharmacy for prescription. Pharmacy information given to
[2020-10-29] MEDS ORDERED: CIPRO500 MG/51 PO (14:23)
--- NOTE | 2020-10-29 14:30 | Internal Med Progress Note ---
Subjective Physician Name Elijah Robert Attending Physician Elijah Robert MD Current Medications Medications (Trade) Dose Ordered Sig/Delon Route PRN Reason Start Time Stop Time Status Last Admin Dose Admin Acetaminophen (Tylenol) 650 mg Q6H PRN ORAL Mild Pain (Pain Scale 1-3) 10/27/20 21:15 11/26/20 21:14 Acetaminophen (Tylenol) 650 mg Q6H PRN ORAL Temp >100.5 10/27/20 21:15 11/26/20 21:14 Acetaminophen/ Hydrocodone Bitart ([place] 5/325) 1 tab Q6H PRN ORAL Moderate Pain (Pain Scale 4-6) 10/27/20 21:15 11/03/20 21:14 Amlodipine Besylate (Norvasc) 10 mg DAILY ORAL 10/28/20 09:00 11/27/20 08:59 10/29/20 08:27 Barium Sulfate (Readi-Cat 2) 450 ml NOW PRN ORAL Radiology Procedure 10/27/20 21:15 10/29/20 21:14 Dextrose/ Electrolytes 1,000 ml @ 75 mls/hr [id number] IV 10/27/20 23:00 11/26/20 22:59 10/29/20 01:40 Iohexol (OMNIPAQUE-300 100ml) 100 ml NOW PRN INJ Radiology Procedure 10/27/20 21:15 10/29/20 21:14 Morphine Sulfate (Morphine Sulfate) 2 mg Q6H PRN IVP Severe Pain (Pain Scale 7-10) 10/27/20 21:15 11/03/20 21:14 Ondansetron HCl (Zofran) 4 mg Q4H PRN IVP Nausea & Vomiting 10/27/20 21:15 11/26/20 21:14 Piperacillin Sod/ Tazobactam Sod 3.375 gm/Sodium Chloride 110 ml @ 27.5 mls/hr EVERY 8 HOURS IVPB 10/27/20 23:00 11/01/20 22:59 10/29/20 06:27 Allergies: Coded Allergies: No Known Allergies (Unverified , 10/25/20) Subjective awake, alert, responsive, no acute distress, denies any abdominal pain, tolerated diet. Objective Last Vital Signs Date Time Temp Pulse Resp B/P (MAP) Pulse Ox O2 Delivery O2 Flow Rate FiO2 10/29/20 12:00 97.2 65 18 121/78 (92) 96 10/29/20 09:00 Room Air Intake and Output 10/28/20 10/29/20 19:00 07:00 Intake Total 852.5 ml Balance 852.5 ml Intake Oral 750 ml IV Total 102.5 ml # Voids 3 # Bowel Movements 1 Objective GENERAL: The patient is awake and responsive, not in acute distress. HEAD AND NECK: Pupils are equal and reactive to light. Extraocular movements are intact. Neck was supple. No JVD. LUNGS: Good air entry with no wheezing or rales. HEART: S1, S2. Regular rhythm. No Murmur or gallop. ABDOMEN: Soft, nondistended. Mildly obese. No rebound tenderness. Less left lower quadrant tenderness on deep palpation. RECTAL/GENITOURINARY: Refused and deferred. EXTREMITIES: No cyanosis, clubbing, or edema. NEUROLOGIC: Cranial nerves II through XII grossly normal. Motor strength is 5/5 in all extremities. Gait is intact. Assessment/Plan Assessment/Plan ASSESSMENT: 1. Left lower quadrant pain, most likely due to diverticulitis, however, cannot rule out any other etiology, possible intra-abdominal infection such as abscess. 2. Hypertension. 3. Acute kidney injury and chronic renal insufficiency. 4. Obesity. PLAN: In medical floor. Abx: Zosyn. Code status: Full Code. DVT prophylaxis: Heparin subcutaneous. Dr. Sewell from Gastroenterology Dr. Wylie from General Surgery consultation. [place] home today on Cipro and Flagyl POt Elijah Robert MD Oct 29, 2020 14:30
--- NOTE | 2020-10-29 15:00 | NUR ---
NURSE NOTES: Patient discharged in stable condition. Discharge instruction given to patient and verbalized understanding. Instructed to bulk picker prescription from [facility] pharmacy and take as ordered and verbalized understanding. IV and ID removed. Instructed to follow up with MD and verbalized understanding. Patient ambulated out with all personal belongings with steady gait.
--- NOTE | 2020-10-29 15:22 | Consultation ---
History of Present Illness General Date patient seen: Oct 29, 2020 Reason for Hospitalization: Abdominal Pain Present Illness HPI This is a 60-year-old male who was recently diagnosed with diverticulitis initially attempted outpatient management but continued of pain therefore came in for evaluation again was admitted further care and management. Surgery was called to evaluate assist with care. Patient states that his abdominal pain has improved since admission. He is been doing well with medical management antibiotics. No nausea vomiting. Intermittent diarrhea. Tolerating diet. Labs noted CT reviewed. Allergies: Coded Allergies: No Known Allergies (Unverified , 10/25/20) COVID-19 Screening Contact w/high risk pt: No Experienced COVID-19 symptoms?: No Medication History Scheduled Amlodipine Besylate* (Amlodipine Besylate*), 10 MG ORAL DAILY, (Reported) Ciprofloxacin (Cipro), 500 MG PO BID Docusate Sodium* (Colace*), 100 MG ORAL TWICE A DAY Metronidazole* (Flagyl*), 500 MG ORAL BID Psyllium Husk (Psyllium Fiber), 0.52 GM PO THREE TIMES A DAY Scheduled PRN Oxycodone/Acetaminophen 5-325* (Percocet 5-325 Mg Tablet*), 1 TAB ORAL Q6H PRN for For Pain Patient History History Provided By: Patient, Medical Record, PMD Healthcare decision maker N Resuscitation status Advanced Directive on File Past Medical/Surgical History Past Medical/Surgical History: (1) Renal failure (2) Diverticulitis Review of Systems Review of Symptoms General ROS: no weight loss or fever Psychological ROS: no depression or mood changes, no memory loss Ophthalmic ROS: no visual changes or eye irritation ENT ROS: no nasal congestion, hearing loss, dizziness Allergy and Immunology ROS: no allergic symptoms or urticaria Hematological and Lymphatic ROS: no swollen glands, unusual bleeding or bruising Endocrine ROS: no polyuria, polydipsia, weight changes, temperature intolerance Respiratory ROS: no cough, shortness of breath, or wheezing Cardiovascular ROS: no chest pain or dyspnea on exertion Gastrointestinal ROS: denies abdominal pain, bright red blood in stool. Musculoskeletal ROS: no myalgias or arthralgias Neurological ROS: no TIA or stroke symptoms Dermatological ROS: no new or changing skin lesions, rashes or pruritis Physical Exam Physical Exam General appearance: alert, cooperative, no distress, appears stated age Head: Normocephalic, without obvious abnormality, atraumatic Eyes: conjunctivae/corneas clear. PERRL, EOM's intact. Fundi benign Throat: Lips, mucosa, and tongue normal. Teeth and gums normal Neck: supple, symmetrical, trachea midline, no adenopathy, thyroid: not enlarged, symmetric, no tenderness/mass/nodules, no carotid bruit and no JVD Lungs: clear to auscultation bilaterally Heart: regular rate and rhythm, S1, S2 normal, no murmur, click, rub or gallop Abdomen: soft, non-tender. Bowel sounds normal. No masses, no organomegaly Extremities: extremities normal, atraumatic, no cyanosis or edema Pulses: 2+ and symmetric Skin: Skin color, texture, turgor normal. No rashes or lesions Neurologic: Grossly normal Last 24 Hour Vital Signs Date Time Temp Pulse Resp B/P (MAP) Pulse Ox O2 Delivery O2 Flow Rate FiO2 10/29/20 12:00 97.2 65 18 121/78 (92) 96 10/29/20 09:00 Room Air 10/29/20 08:27 60 125/86 10/29/20 08:00 97.9 60 18 125/86 (99) 97 10/29/20 04:00 97.1 55 18 123/76 (92) 97 10/29/20 00:00 97.9 67 18 143/92 (109) 100 10/28/20 21:00 Room Air 10/28/20 20:00 98.0 74 18 130/88 (102) 98 10/28/20 16:00 98.0 62 20 156/74 (101) 100 Intake and Output 10/28/20 10/29/20 19:00 07:00 Intake Total 852.5 ml Balance 852.5 ml Intake Oral 750 ml IV Total 102.5 ml # Voids 3 # Bowel Movements 1 Height (Feet): 5 Height (Inches): 9.00 Weight (Pounds): 193 Assessment/Plan Problem List: (1) Renal failure ICD Codes: N19 - Unspecified kidney failure SNOMED: [id number] Qualifiers: Qualified Codes: N17.9 - Acute kidney failure, unspecified (2) Diverticulitis Assessment & Plan: 52-year-old male with acute uncomplicated diverticulitis. Both CT from first emergency department visit and recent admission I reviewed. Improving. Responding well to medical management. No acute surgical int ervention planned. Okay for diet. Abdominal exam benign. Labs noted. Recommend follow-up outpatient with primary care physician. Dietary changes. If continues to have episodes may consider surgical intervention which can be discussed as outpatient with his primary care physician outpatient surgeon. Okay for discharge from surgical standpoint. Thank you for letting participate patient's care There is colonic diverticulosis. Again demonstrated is inflammatory stranding of the pericolonic fat surrounding the distal descending colon. This appears slightly decreased from the prior exam, and the amount of fluid tracking in the adjacent fascial planes is also decreased. No organized fluid collection or extraluminal gas is demonstrated. The appendix is normal. No small bowel distention. Ingested contrast has traversed the entirety of the GI tract, is seen as far distally as the splenic flexure the colon. No small bowel wall thickening. No free or loculated intraperitoneal gas. The distal esophagus, stomach, duodenum are unremarkable. Lack of IV contrast limits assessment of the solid organs. The liver, gallbladder, bile ducts, pancreas, spleen, adrenals, kidneys are unremarkable. No retroperitoneal or mesenteric mass or adenopathy. No pelvic mass or adenopathy. The included lung bases demonstrate posterior dependent atelectatic changes. The bones are unremarkable for age. Impression: Evidence of uncomplicated acute diverticulitis of the distal descending colon is again demonstrated. Overall inflammatory changes and fluid have improved slightly since the previous exam of 3 days earlier. No evidence of microperforation or abscess formation ICD Codes: K57.92 - Diverticulitis of intestine, part unspecified, without perforation or abscess without bleeding SNOMED: [id number] JorgekaiRene Oct 29, 2020 15:22
--- NOTE | 2020-11-01 14:32 | Discharge Summary ---
Discharge Summary Discharge Summary _ DATE OF ADMISSION: 10/27/2020 DATE OF DISCHARGE: 10/29/2020 DISCHARGED BY: Dr. Robert REASON FOR ADMISSION: 60 years old male with past medical history significant for hypertension and chronic kidney disease , presented to the hospital complaining of the left lower quadrant abdominal pain. CT scan of the abdomen and pelvis revealed uncomplicated acute diverticulitis of the distal descending colon ; no evidence of microperforation or abscess. Laboratory work-up revealed no leukocytosis ; BUN 17 , creatinine 1.7 In emergency department patient started on empiric antibiotics, received IV hydration and admitted for further management. CONSULTANTS: GI specialist Dr. Sewell surgery Dr. Wylie [facility] COURSE: Patient admitted to medical surgical floor . Clear liquid diet provided. Patient started on broad-spectrum antibiotics. Pain management was addressed Supportive care provided DVT prophylaxis provided Surgeon and GI will and GI specialist followed. Per surgeon, conservative medical management with antibiotic was working ; no need for surgical intervention at this time. GI specialist recommended outpatient colonoscopy in 8 weeks. Renal parameters and electrolytes were closely monitored: creatinine from 1.7 down to 1.5. Blood pressure was managed with calcium channel toño, remained stable. Patient clinically stabilized. Pain resolved . Patient was ready for discharge home FINAL DIAGNOSES: Acute diverticulitis Hypertension Acute kidney injury on chronic kidney disease Obesity DISCHARGE MEDICATIONS: See Medication Reconciliation list. DISCHARGE INSTRUCTIONS: Patient was discharged home. Follow-up with a primary care provider in 1 week. Outpatient colonoscopy in 8 weeks recommended. I have been assigned to dictate discharge summary for this account. I was not involved in the patient's management. Morena Rosario NP Nov 01, 2020 14:32
== END 2020-10-29 15:00 | disposition home or self-care (01) | DRG 244 ==
LOC: EMR 13:53 → 4E 17:50 → EDBEDREQ 18:38 → 4E 20:00
DX: K57.92 Diverticulitis of intestine, part unspecified, without perforation or abscess without bleeding (principal); N17.9 Acute kidney failure, unspecified; E66.9 Obesity, unspecified; I12.9 Hypertensive chronic kidney disease with stage 1 through stage 4 chronic kidney disease, or unspecified chronic kidney disease; N18.9 Chronic kidney disease, unspecified
CPT/HCPCS: 36415; 74176; 80053; 81003; 82570; 83690; 83735; 84100; 84300; 85025; 85610; 85730; 96361; 96365; 96375; 99285; J2765; J7030